=== PATIENT | female | born 1995 | race Two or more races ===

== ENCOUNTER 2024-01-23 18:58 | Emergency (ER) | payer OTHER, SELFPAY ==
--- NOTE | ~2024-01-23 | CT_ITS ---
EXAMINATION: CT HEAD WITHOUT CONTRAST CLINICAL INFORMATION: Headache after fall. COMPARISON: None available. TECHNIQUE: Contiguous axial imaging was performed from the skull base to vertex without intravenous administration of contrast. This CT examination was performed using dose optimization techniques as appropriate, variously including the following: *Automated exposure control *Adjustment of mA and/or kV according to patient size (this includes techniques or standardized protocols for targeted exams where dose is matched to indication/reason for exam; i.e. extremities or head) *Use of iterative reconstruction technique DLP: 589 mGy-cm FINDINGS: There is no mass hemorrhage or cerebral edema. The ventricles and sulci unremarkable. No extra-axial fluid collections. Manzanares-white differentiation normal. Soft tissues: Normal. Osseous structures: Normal Sinuses: Minimal mucosal thickening of the right maxillary sinus. Mastoid air cells clear CT/CT head/brain wo IV con IMPRESSION: No acute intracranial pathology. Electronically signed by: Ten Saez MD 01/23/2024 09:02 PM [facility]
[2024-01-23 19:55] VITALS: BP 129/82; PULSE 77; RESP 18; TEMP 36.6; O2SAT 98; BMI 25.5
--- NOTE | 2024-01-23 19:57 | ED.GENADULT ---
HPI - General Adult General Stated complaint: bilateral ear pain,severe headache Related Data Allergies Allergy/AdvReac Type Severity Reaction Status Date / Time hazelnut Allergy Unknown Verified 01/23/24 19:57 shrimp Allergy Unknown Verified 01/23/24 19:57 Course Course Course Narrative: RME, this is a rapid medical exam performed by Josesito Carlson please refer to primary provider for complete H&P- 28-year-old female presents for evaluation of ear pain in the headache. She reports that she fell on Friday, 5 days ago and struck the left side of her head on a case of water. She went to urgent care and was told that she had a ruptured eardrum. She has a very small perforation to the center of the TM on left. She did not have any imaging of her head. She reports her headache has been more severe and ?debilitating. ? plan for CT scan of the brain. Neuro is intact.
== END 2024-01-24 01:54 | disposition left against medical advice (07) ==
PROVIDERS: Emergency Provider Internal Medicine
DX: R51.9 Headache, unspecified (principal); H72.02 Central perforation of tympanic membrane, left ear; Z91.81 History of falling
CPT/HCPCS: 70450; 99281